=== PATIENT | male | born 1950 | race Caucasian/White ===

== ENCOUNTER 2017-07-20 12:43 | Emergency (ER) | payer OTHER ==
[~2017-07-20] VITALS: Ht 182.9 cm; Wt 80.0 kg
[~2017-07-20 12:43] MED LIST: ASPI325T PO; ATOR20TA42 PO; METR0.7537 TOP
[2017-07-20 12:54] VITALS: BP 133/77; PULSE 58; RESP 16; TEMP 98.5; O2SAT 99
[2017-07-20] MEDS ORDERED: LIDOCAINE HCL 1% PF 30 ML VIAL INFIL ONE (13:00)
--- NOTE | 2017-07-20 13:04 | PD ---
HPI Chief Complaint: Laceration/Skin Injury Time Seen by Provider: 12:56 Travel History International Travel<30 days: No Contact w/Intl Traveler<30days: No Traveled to known affect area: No History of Present Illness HPI 67-year-old male the presents to the ED for evaluation of laceration to his philtrum. Patient suffered a fall from a trip and fall while moving a trash can. Patient did not lost consciousness but hit his philtrum on the garbage can and cut him. Per patient he was not too concerned until he noticed that whenever he does chew he started bleeding on his cot. He got concerned that he may need stitches. He denies any other medical issues. He does have a history of rosacea and takes doxycycline 50 mg daily. He also suffered some abrasions to his legs but denies any problems with them. Denies any blood thinners. Pain is 2 out of 10 on the cut. Up-to-date with his tetanus. No other medical issues. No allergies. Injury occurred today less than a few hours ago. [facility] Social History Alcohol Use: No Tobacco Use: No Substance Use: No Allergies-Medications (Allergen,Severity, Reaction): Coded Allergies: No Known Allergies (Verified Adverse Reaction, Unknown, 07/20/17) Reported Meds & Prescriptions Reported Meds & Active Scripts Active Reported Metrogel (Metronidazole) 28.4 Gm Gel 0.75 % TOP DAILY@0600 Aspirin 325 Mg Tab 325 Mg PO DAILY TAKE 0.5 TABLET Lipitor (Atorvastatin Calcium) 20 Mg Tab 20 Mg PO DAILY Review of Systems Except as stated in HPI: all other systems reviewed are Neg Physical Exam Narrative GENERAL: SKIN: Warm and dry. Patient has a 5 cm laceration across the philtrum just below the nostrils. Well approximated with some bleeding noted and opens up with pressure. No foreign body noted but some bleeding noted. Patient does have 2 superficial abrasions one to each leg just below the knee. Nontender. No bleeding. HEAD: Atraumatic. Normocephalic. EYES: Pupils equal and round. No scleral icterus. No injection or drainage. ENT: No nasal bleeding or discharge. Mucous membranes pink and moist. Nostrils are patent bilaterally. Dental exam, unremarkable. No sign of trauma to the inside of the gum or mouth. NECK: Trachea midline. No JVD. CARDIOVASCULAR: Regular rate and rhythm. RESPIRATORY: No accessory muscle use. Clear to auscultation. Breath sounds equal bilaterally. GASTROINTESTINAL: Abdomen soft, non-tender, nondistended. Hepatic and splenic margins not palpable. MUSCULOSKELETAL: Extremities without clubbing, cyanosis, or edema. No obvious deformities. Full range of motion of the upper and lower extremities bilaterally. 2+ pulses bilaterally. NEUROLOGICAL: Awake and alert. No obvious cranial nerve deficits. Motor grossly within normal limits. Five out of 5 muscle strength in the arms and legs. Normal speech. PSYCHIATRIC: Appropriate mood and affect; insight and judgment normal. Data Data Last Documented VS Vital Signs Date Time Temp Pulse Resp B/P (MAP) Pulse Ox O2 Delivery O2 Flow Rate FiO2 07/20/17 12:54 98.5 58 16 133/77 (95) 99 Orders Orders Lidocaine Pf 1% Inj (Xylocaine-Mpf 1% In (07/20/17 13:00) Ed Discharge Order (07/20/17 13:30) [facility] Medical Decision Making Medical Screen Exam Complete: Yes Emergency Medical Condition: Yes Medical Record Reviewed: Yes Differential Diagnosis Laceration versus abrasion versus skin tear Narrative Course 67-year-old male the presents to the ED for evaluation of laceration. Patient was properly examined and was found to have signs and symptoms consistent with laceration. The recommend sutures as the wound was opened up and is bleeding. Patient agrees. After explaining procedure to the patient and he agreed to it laceration was repaired as stated in procedure note. Patient already takes doxycycline daily. The recommend he continues taking this to prevent infection. Wound care was endorsed. Follow-up with PCP. See ED worsening symptoms. Procedures Procedure Narrative LACERATION LOCATION: upper lip LENGTH: 4 cm NUMBER OF STITCHES/MICHELL: 10 sutures REPAIR: The area of the laceration was prepped with Betadine and sterilely draped. The laceration was infiltrated with 1% Xylocaine. The wound was copiously irrigated and explored without evidence of foreign body, tendon injury or neurovascular injury. The wound was closed using 5-0 Prolene. This was a 1 layer repair. A sterile dressing was applied. The patient was advised to keep the dressing clean and dry. Patient tolerated the procedure well. Diagnosis Primary Impression: Laceration Patient Instructions: General Instructions Additional Instructions: Ice to the area as needed. Wound care daily with soap and water. You can apply bandaid if needed. Neosporyn or OTC antibiotic ointment to area as needed twice a day for at least 2 weeks to help with scarring and prevent infection. Meoderma OTC for scarring if needed. Avoid sun exposure for 2 months as the sun could make scar darker and more noticeable. Get sutures removed in 7-10 days. See ED if worst. Med/Other Pt SpecificInfo: No Change to Meds Disposition: 01 DISCHARGE HOME Condition: Stable Reginald Murray July 20, 2017 13:04
[2017-07-20] MEDS ORDERED: DOXY50 PO (13:38)
[2017-07-20] MEDS ORDERED: DULO20 PO (13:38)
[2017-07-20] MEDS ORDERED: ATOR20TA15 PO (13:38)
== END 2017-07-20 13:59 | disposition home or self-care (01) ==
LOC: PHEFT 12:43
DX: S01.511A Laceration without foreign body of lip, initial encounter (principal); S80.812A Abrasion, left lower leg, initial encounter; S80.811A Abrasion, right lower leg, initial encounter; W01.0XXA Fall on same level from slipping, tripping and stumbling without subsequent striking against object, initial encounter; Z79.82 Long term (current) use of aspirin; Z79.899 Other long term (current) drug therapy
CPT/HCPCS: 12013